=== PATIENT | male | born 1960 | race Caucasian/White ===

== ENCOUNTER 2017-04-03 07:06 | Day surgery (SDC) | payer BC, OTHER ==
[~2017-04-03 07:06] MED LIST: Lactated Ringers 1,000 ML IV SCH
[2017-04-03] MEDS ORDERED: fentaNYL 100 MCG/2 ML SDV ONE (07:59)
[2017-04-03] MEDS ORDERED: Propofol 200 MG/20 ML SDV ONE (07:59)
[2017-04-03] MEDS ORDERED: Midazolam 1 MG/ML 2 ML SDV ONE (07:59)
--- NOTE | 2017-04-03 15:49 | OR ---
PREOPERATIVE DIAGNOSIS: History of polyps. POSTOPERATIVE DIAGNOSES: 1. Tiny sigmoid polyp at 35 cm. 2. Moderate sigmoid diverticulosis. PROCEDURE PROPOSED: Total flexible colonoscopy. PROCEDURE DONE: Total flexible colonoscopy with polypectomy x1. INDICATION: This is a 56-year-old gentleman who comes in for colonic surveillance due to a history of polyps. His last examination was about 5 years ago. TECHNIQUE: The patient was brought to the endoscopy suite and placed in the left lateral decubitus position. He was sedated per [employer] with propofol. The flexible video colonoscope was then passed transanally and under visualization advanced to the cecum. Examination revealed a normal ascending, transverse, and descending colon. The sigmoid colon revealed moderate diverticulosis and at 35 cm from the anal verge, there was a tiny polyp removed with 2 bites of the cold biopsy forceps and submitted for pathologic examination. He continued to have some diverticulosis and the rectum was normal. The scope was then withdrawn. He tolerated the procedure well. FINAL IMPRESSION: 1. Sigmoid diverticulosis. 2. Small polyp at 35 cm, removed. 3. History of prior polyps. PLAN: He will be sent a letter with pathology report. He should continue with colonic surveillance every 5 years hereafter. SCM: 04/03/2017 11:23:40 MODL: 04/03/2017 15:39:27 /[id number]
--- NOTE | 2017-04-21 11:11 | LETTER ---
04/21/2017 Jerry Landrum. RE: JERRY LANDRUM : 1960 Dear Jerry, The polyp removed from your colon was a benign insignificant polyp known as a hyperplastic polyp. I do feel that you should continue to have your colon examined every 5 years because of your history of polyps. If you have any further questions regarding this, feel free to call. Respectfully,
== END 2017-04-03 12:25 | disposition home or self-care (01) ==
LOC: VM.SDS 07:06
PROVIDERS: ATTEND Surgery
DX: Z12.11 Encounter for screening for malignant neoplasm of colon (principal); K63.5 Polyp of colon; K57.30 Diverticulosis of large intestine without perforation or abscess without bleeding; Z86.010 Personal history of colon polyps; Z79.82 Long term (current) use of aspirin; Z79.899 Other long term (current) drug therapy
CPT/HCPCS: 45380; J2250; J2704; J3010; J7120

== ENCOUNTER 2018-08-06 03:52 | Emergency (ER) | payer OTHER ==
[2018-08-06] MEDS ORDERED: Sodium Chloride 0.9% 10 ML Syringe FLUSH PRN (04:10)
[2018-08-06] MEDS ORDERED: Promethazine 12.5 MG in Sodium Chloride 0.9% 100 ML IV ONE (04:11)
[2018-08-06] MEDS ORDERED: Meclizine 25 MG Tab PO ONE (04:12)
[2018-08-06] MEDS ORDERED: Scopolamine 1.5 MG Transdermal Patch TRDERM STA (04:13)
[2018-08-06] MEDS ORDERED: Ondansetron 8 MG in Sodium Chloride 0.9% 100 ML IV ONE (04:13)
[2018-08-06] MEDS ORDERED: Sodium Chloride 0.9% 1,000 ML IV ONE (04:13)
--- NOTE | 2018-08-06 04:19 | EDM.PDOC ---
ED HPI GENERAL MEDICAL PROBLEM - General Chief Complaint: General Stated Complaint: dizziness Time Seen by Provider: 08/06/18 04:10 Source of Information: Reports: Patient, Family History Limitations: Reports: No Limitations - History of Present Illness INITIAL COMMENTS - FREE TEXT/NARRATIVE: Patient comes in to the Emergency department with complaint of dizziness. Patient states approximately 1-1/2 hours ago the patient woke up suddenly moved his head and became very dizzy. Patient states that if he closes his eyes and lays back he has relief however if he sits up or turns his head in either direction he gets severe dizziness. He states that he does get nauseated and has vomited with the dizziness. Denies any chest pain, shortness of breath, headache, change in vision, numbness, gastrointestinal concerns, or lower extremity edema. Patient denies any recent illnesses. He does admit to get intermittent seasonal allergies. Onset: Sudden Location: Reports: Other Quality: Reports: Other Severity: Moderate Improves with: Reports: Immobilization Worsens with: Reports: Movement Context: Reports: Other Associated Symptoms: Reports: Nausea/Vomiting - Related Data Allergies Allergy/AdvReac Type Severity Reaction Status Date / Time No Known Allergies Allergy Verified 08/06/18 03:57 Home Meds: Home Meds Aspirin [Adult Low Dose Aspirin EC] 81 mg PO DAILY 04/01/17 [History] atorvaSTATin [Lipitor] 40 mg PO BEDTIME 04/01/17 [History] Losartan/Hydrochlorothiazide [Hyzaar 50-12.5 Tablet] 1 tab PO DAILY 04/03/17 [ History] Ondansetron [Zofran Odt] 8 mg PO Q6H PRN #15 tab.rapdis 08/06/18 [Rx] Past Medical History HEENT History: Reports: None Cardiovascular History: Reports: High Cholesterol, Hypertension Respiratory History: Reports: None Gastrointestinal History: Reports: Colon Polyp Genitourinary History: Reports: None Musculoskeletal History: Reports: None Neurological History: Reports: None Psychiatric History: Reports: None Endocrine/Metabolic History: Reports: None Hematologic History: Reports: None Immunologic History: Reports: None Oncologic (Cancer) History: Reports: None Dermatologic History: Reports: None - Past Surgical History Head Surgeries/Procedures: Reports: None HEENT Surgical History: Reports: None Cardiovascular Surgical History: Reports: None GI Surgical History: Reports: Colonoscopy Male Surgical History: Reports: None Neurological Surgical History: Reports: None Musculoskeletal Surgical History: Reports: None Dermatological Surgical History: Reports: None Social & Family History - Tobacco Use Smoking Status *Q: Never Smoker - Caffeine Use Caffeine Use: Reports: Coffee, Soda - Alcohol Use Number of Drinks Per Day: 3 - Recreational Drug Use Recreational Drug Use: No ED ROS GENERAL - Review of Systems Review Of Systems: ROS reveals no pertinent complaints other than HPI. Constitutional: Reports: No Symptoms HEENT: Reports: Vertigo Respiratory: Reports: No Symptoms Cardiovascular: Reports: No Symptoms GI/Abdominal: Reports: No Symptoms Musculoskeletal: Reports: No Symptoms Skin: Reports: No Symptoms Neurological: Reports: No Symptoms Psychiatric: Reports: No Symptoms ED EXAM, GENERAL - Physical Exam Exam: See Below Exam Limited By: No Limitations General Appearance: Alert, WD/WN, No Apparent Distress Ear Exam: Bilateral Ear: Auricle Normal, Canal Normal, TM Bulging Nose: Normal Inspection, Normal Mucosa Throat/Mouth: Normal Inspection, Normal Lips Head: Atraumatic, Normocephalic Respiratory/Chest: No Respiratory Distress, Lungs Clear, Normal Breath Sounds, No Accessory Muscle Use Cardiovascular: Normal Peripheral Pulses, Regular Rate, Rhythm, No Edema GI/Abdominal: Normal Bowel Sounds, Soft, Non-Tender, No Distention Back Exam: Normal Inspection, Full Range of Motion Extremities: Normal Inspection, Normal Range of Motion, Non-Tender Neurological: Alert, Oriented, Normal Gait, Other (Patient lays back and eyes closed-dizziness is releaved. Turn head severly to the left or to the right and open eyes dizziness appears ) Psychiatric: Normal Affect, Normal Mood Skin Exam: Pallor Course - Vital Signs Last Recorded V/S: Last Vital Signs Temp 35.5 C 08/06/18 03:54 Pulse 74 08/06/18 05:30 Resp 16 08/06/18 05:30 BP 169/99 H 08/06/18 05:30 Pulse Ox 96 08/06/18 05:30 - Orders/Labs/Meds Orders: Active Orders 24 hr Category Date Time Status Peripheral IV Insertion Adult [OM.PC] Stat Oth 08/06/18 04:11 Ordered Meds: Medications Discontinued Medications Generic Name Dose Route Start Last Admin Trade Name Freq PRN Reason Stop Dose Admin Promethazine HCl 12.5 mg/ 100.5 mls @ 400 mls/hr 08/06/18 04:11 08/06/18 04: 26 Sodium Chloride IV 08/06/18 04:26 Not Given ONETIME ONE Ondansetron HCl 8 mg/ Sodium 104 mls @ 400 mls/hr 08/06/18 04:13 08/06/18 04: 22 Chloride IV 08/06/18 04:28 400 mls/hr ONETIME ONE Administration Sodium Chloride 1,000 mls @ 1,000 mls/hr 08/06/18 04:13 08/06/18 04:19 Normal Saline IV 08/06/18 05:12 1,000 mls/hr ONETIME ONE Administration Meclizine HCl 25 mg 08/06/18 04:12 08/06/18 04:20 Antivert PO 08/06/18 04:13 25 mg ONETIME ONE Administration Scopolamine 1.5 mg 08/06/18 04:13 08/06/18 04:46 Transderm-Scop TRDERM 08/06/18 04:14 1.5 mg NOW STA Administration Sodium Chloride 10 ml 08/06/18 04:10 08/06/18 04:25 Saline Flush FLUSH 10 ml ASDIRECTED PRN Administration Keep Vein Open Departure - Departure Time of Disposition: 05:30 Disposition: Home, Self-Care 01 Condition: Good Clinical Impression: Vertigo - Discharge Information *PRESCRIPTION DRUG MONITORING PROGRAM REVIEWED*: Not Applicable *COPY OF PRESCRIPTION DRUG MONITORING REPORT IN PATIENT DWAYNE: Not Applicable Prescriptions: Ondansetron [Zofran Odt] 8 mg PO Q6H PRN #15 tab.rapdis PRN Reason: Nausea Instructions: Vertigo, [id number], How to Perform the Inez Maneuver, Motion Sickness Referrals: PCP,None [Primary Care Provider] - Forms: ED Department Discharge Additional Instructions: 1. rest 2. increase water intake 3. Take the day easy and do not over do 4. Can take Flonase nasal spray to help with the fluid on the ears for the next 3-4 days. one spray up each nostril two times a day 5. Activity and diet as tolerated 6. Can place another scopolamine patch on in 72 hours if vertigo returns. 7. Take Zofran as needed if vertigo/nausea returns 8. Can purchase OTC meclizine to help with vertigo symptoms 9. If vertigo returns it is advisable to follow up with physical therapy or PCP for jail management. 10. Also attached is Inez maneuver to help cure vertigo at home 11. Please follow up with your PCP if not feeling better 12. Call with any questions and concerns. - Problem List Review Problem List Initiated/Reviewed/Updated: Yes - My Orders Last 24 Hours: My Active Orders 08/06/18 04:11 Peripheral IV Insertion Adult [OM.PC] Stat - Assessment/Plan Last 24 Hours: My Active Orders 08/06/18 04:11 Peripheral IV Insertion Adult [OM.PC] Stat Assessment:: 1. vertigo Plan: 1. IV with fluids provided in the ER 2. Zofran given in the ER for nausea 3. Meclizine given in the ER for dizziness/vertigo 4. Scopolamine patch for exterminator dizziness/vertigo relief 5. Patient feeling better with above regiment. He feels he can go home 6. Education regarding vertigo, activity, diet, follow up care and OTC management was provided 7. All questions and concerns were addressed prior to discharge.
== END 2018-08-06 05:35 | disposition home or self-care (01) ==
LOC: VM.ED 03:52
DX: R42 Dizziness and giddiness (principal); I10 Essential (primary) hypertension; E78.00 Pure hypercholesterolemia, unspecified; Z79.82 Long term (current) use of aspirin; Z79.899 Other long term (current) drug therapy
CPT/HCPCS: 96365; 96375; 99284; A9270; J2405; J7030; J7050

== ENCOUNTER 2023-09-12 21:00 | Emergency (ER) | payer OTHER ==
[2023-09-12] MEDS: Oxymetazoline 0.05% Nasal Spray 30 ML Bottle NAS ONE (21:35)
[2023-09-12 22:33] LABS: BASOPHILS PERCENT AUTO 0.4 % (0.2-1.2); EOSINOPHILS ABSOLUTE AUTO 0.4 x10^3/uL (0.0-0.5); EOSINOPHILS PERCENT AUTO 4.2 % (0.0-4.0); HEMATOCRIT 47.6 % (40.0-52.0); HEMOGLOBIN 17.4 g/dL (14.0-18.0); IMMATURE GRAN ABSOLUTE AUTO 0.01 x10^3/uL (0.00-0.07); LYMPHOCYTES ABSOLUTE AUTO 2.4 x10^3/uL (1.0-4.8); LYMPHOCYTES PERCENT AUTO 26.7 % (25.0-50.0); MEAN CORPUSCULAR HEMOGLOBIN 32.5 pg (26.0-32.0); MEAN CORPUSCULAR HGB CONC 36.6 g/dL (32.0-36.0); MEAN CORPUSCULAR VOLUME 88.8 fL (78.0-93.0); MONOCYTES ABSOLUTE AUTO 0.7 x10^3/uL (0.0-0.8); NEUTROPHILS ABSOLUTE AUTO 5.5 x10^3/uL (1.8-7.7); NEUTROPHILS PERCENT AUTO 60.6 % (50.0-80.0); PLATELET COUNT,PLT 233 x10^3/uL (130-400); RED BLOOD CELL COUNT 5.36 x10^6/uL (4.5-6.0)
[2023-09-12 22:41] LABS: PTT,PARTIAL THROMBOPLSTIN TIME 27.6 SEC (21.9-33.8)
[2023-09-13] MEDS: Oxymetazoline 0.05% Nasal Spray 30 ML Bottle ONE (07:51)
== END 2023-09-12 23:06 | disposition home or self-care (01) ==
LOC: VM.ED 21:00
DX: R04.0 Epistaxis (principal); I10 Essential (primary) hypertension; Z79.82 Long term (current) use of aspirin; Z79.899 Other long term (current) drug therapy
CPT/HCPCS: 30903; 36415; 85025; 85610; 85730; 99283; A9270